=== PATIENT | male | born 1955 | race Caucasian/White ===

== ENCOUNTER 2017-04-18 08:36 | Observation (INO) | payer BC ==
[~2017-04-18] VITALS: Ht 182.9 cm; Wt 97.7 kg
--- NOTE | ~2017-04-18 | CATH ---
Cardiac Diagnostic + PCI Report Demographics Patient Name THERESA Rojas Gender Male Date of 1955 Age 61 year(s) Patient Number [id number] Date of Study 04/18/2017 Visit Number [id number] Room Number 415 Corporate ID Ht 182.88 cm Wt 100.24 kg Accession Number [id number] BSA 2.22 m kg/m Referring Benjamin Alexis MD Primary Physician Physician Performing Bhavya LIRIANO Secondary Physician Physician Samir Alexis MD Diagnostic Benjamin Alexis MD Assisting Physician Physician Interventional Bhavya LIRIANO Physician Reproductive Healthcare Assistant Physician Samir Findings and Conclusions Diagnostic Findings and Conclusion Single vessel coronary artery disease. Normal LVEDP. Diagnostic Recommendations PCI of the proximal LAD. Interventional Findings and Conclusion Successful PCI of the proximal LAD with a 3.5 x 16 Synergy stent, post-dilated to 3.75. Interventional Recommendations Risk factor modification and dual antiplatelet therapy. Procedure Description The patient was brought to the diagnostic cardiac catheterization laboratory in the fasting, non-sedated state. Informed consent was obtained in the written and verbal form after the risks and benefits were explained. The patient had no further questions and agreed to proceed. The planned puncture-incision site(s) were clipped and prepped with ChloraPrep and draped in the usual sterile manner. Conscious sedation, supplemental oxygen, and pain control medications were delivered by a registered nurse under physician guidance. Surface ECG rhythm, blood pressure measurement, and pulse oximetry were monitored throughout the procedure. Arterial access. The right radial access site was infiltrated with lidocaine. The vessel was entered with the Seldinger technique. A 6F radial sheath was advanced into the vessel and used for catheter placement. Selective left coronary angiography. A JL3.5 catheter was advanced into the left coronary vessel ostium under Fluoroscopic guidance. Contrast was injected by hand. Images were obtained in multiple projections. Left heart catheterization. A FR4 catheter was advanced across the aortic valve to the left ventricle under fluoroscopic guidance. Resting hemodynamics were obtained. Selective right coronary angiography. An FR4 catheter was advanced into the right coronary vessel ostium under fluoroscopic guidance. Contrast was injected by hand. Images were obtained in multiple projections. Angioplasty and Stent Placement: An XB3.5 guiding catheter was used to intubate the vessel. A 0.14 BMW wire was then used to cross the lesion. A 3.0 x 12 Emerge balloon catheter was placed across the lesion and inflated. The balloon catheter was then removed. A 3.5 x 16 Synergy Drug Eluting Stent was placed and inflated. The stent balloon catheter was then removed. A 3.75 x 12 NC Emerge balloon catheter was placed across the lesion and inflated. The balloon catheter was then removed. Post placement angiograms were performed. Hemostasis: The sheath was removed and a TR Band was placed. Hemostasis was achieved. The patient was transferred to the PCU nursing floor via cart accompanied by a nurse. The patient left the laboratory in stable condition. Diagnostic Cath Status: Elective Procedure Procedure Type Diagnostic procedure:Angiography:, Coronary Angios w/[facility] PCI procedure:Drug Eluting Coronary Stent:, LAD Indications: Unstable angina, Abnormal nuclear perfusion test and Hypertension. The procedure was explained in detail to the patient. Risks, complications and alternative treatments were reviewed. Written consent was obtained. Medications Reviewed with Patient prior to Procedure. Complications: No Complication. Angiographic Findings Dominance: Right Cardiac Arteries and Lesion Findings LMCA: Abnormal. Lesion on LMCA: The lesion was heavily calcified. LAD: Abnormal. Lesion on Prox LAD: Proximal subsection.90% stenosis 16 mm length reduced to 0%. Pre procedure BELKIS III flow was noted. Post Procedure BELKIS III flow was present. The guidewire cross was successful.The lesion was diagnosed as a moderate risk lesion.Culprit lesion. Devices used - BMW GUIDEWIRE 180CM. Number of passes: 1. - CATH BAL RX EMERGE 3.0X12. 1 inflation(s) to a max pressure of: 12 heide. - CATH STENT SYNERGY 3.5 X 16. 1 inflation(s) to a max pressure of: 16 heide. - CATH BAL RX NC EMERGE 3.75X12. 1 inflation(s) to a max pressure of: 16 heide. Lesion on 1st Diag: Ostial.70% stenosis . Pre procedure BELKIS III flow was noted. LCx: Normal (0% Stenosis). RCA: Normal (0% Stenosis). Coronary Tree Procedure Data Procedure Date Date: 04/18/2017Start: 10:32 AMEnd: 12:18 PM Entry Locations - Retrograde Percutaneous access was performed through the Right Radial artery (Primary location). A 6 Fr sheath was inserted. Hemostasis was successfully obtained using a TR band. Procedure Medications Order and Administration + + +---------+-------+ !Time !Medication !Dosage !Route ! + + +---------+-------+ !04/18/2017 !Versed !2 mg !I.V. ! !10:29 AM ! ! ! ! + + +---------+-------+ !04/18/2017 !Fentanyl !50 mcg !I.V. ! !10:29 AM ! ! ! ! + + +---------+-------+ !04/18/2017 !SF Radial Cocktail: 200mcg Nitro, 2.5 mg! !I.A. ! !10:35 AM !Verapamil, 5000u Heparin ! ! ! + + +---------+-------+ !04/18/2017 !Versed !2 mg !I.V. ! !10:37 AM ! ! ! ! + + +---------+-------+ !04/18/2017 !Fentanyl !25 mcg !I.V. ! !10:38 AM ! ! ! ! + + +---------+-------+ !04/18/2017 !Heparin (ACC_3) !8000 !I.V. ! !11:49 AM ! !units ! ! + + +---------+-------+ !04/18/2017 !Sodium Chloride !10 ml !I.V. ! !11:49 AM ! ! ! ! + + +---------+-------+ !04/18/2017 !Brilinta (Ticagrelor) (ACC_20) !180 mg !P.O. ! !11:49 AM ! ! ! ! + + +---------+-------+ !04/18/2017 !Versed !1 mg !I.V. ! !11:50 AM ! ! ! ! + + +---------+-------+ !04/18/2017 !Fentanyl !25 mcg !I.V. ! !11:50 AM ! ! ! ! + + +---------+-------+ !04/18/2017 !Nitroglycerin !200 mcg !I.C. ! !12:04 PM ! ! ! ! + + +---------+-------+ !04/18/2017 !Sodium Chloride !10 ml !I.V. ! !11:50 AM ! ! ! ! + + +---------+-------+ 04/18/2017 !Sodium Chloride !10 ml !I.V. ! !10:29 AM ! ! ! ! + + +---------+-------+ Devices Used - ACATH 6FR FL3.5 CATHETER 100CMwas used for:Left coronary angiography. - ACATH 6F FR4 CATHETER 100CMwas used for:Right coronary angiography. - A6 FrGUIDE CATHETER 6FR XB 3.5 100CMwas used for:LeftsideLAD Intervention. Contrast Material - Isovue 322427 ml - Isovue 41290 ml Fluoroscopy Time: Diagnostic: 6:18 minutes. Total: 6:18 minutes. Fluoroscopy Dose: Diagnostic: 627 mGy. Total: 627 mGy. Estimated Blood Loss: 15 ml. Medical History Performed Procedures and Imaging Results - Stress testing with SPECT MPIwas performed on 04/08/2017. Results were: Positive. Risk/Extent of ischemia was: Low risk. Allergies - Other:(Ampicillin). Risk Factors The patient risk factors include:hypertension, last creatinine: 0.8 mg/dl and creatinine clearance: 134.01 ml/min. Admission Data Admission Date: 04/18/2017 Admission Time: 11:42 AM Arrival Date: 04/18/2017 Arrival Time: 10:24 AM Admit Source: Other Insurance Payors: Private health insurance. Clinical Evaluation Leading to Procedure Diagnosed on 04/09/2017 10:00 AM. - The patient's CAD presentation was assessed as: Unstable angina. - The patient's anginal syndrome during the past two weeks was assessed as: Class III according to the [place] [employer] Classification System (CCS). Anti-anginal medications were prescribed during the past two weeks. The medication is: Beta Blockers. Hemodynamics Condition: Rest O2 Consumption: Estimated: 254.03Heart Rate: 63 bpm Pressures (mmHg) +-----+ + !Site !Pressure ! +-----+ + !AO !122/74 (96) ! +-----+ + !LV !107/2 ,11 ! +-----+ + !AO !109/64 (86) ! +-----+ + !LV !117/4 ,12 ! +-----+ + Valve Gradients and Areas + +---------+---------+---------+ +---------+ + !Valve !Peak !Mean !Area !Index !Flow !Source ! + +---------+---------+---------+ +---------+ + !Aortic !6 !7 ! ! ! ! ! + +---------+---------+---------+ +---------+ + !Aortic !6 !7 ! ! ! ! ! + +---------+---------+---------+ +---------+ + Shunts Oxygen Values O2 Consumption 254.03 Discharge Data Discharge Date: 04/19/2017 Hospital Status: Inpatient Signatures
[2017-04-19] MEDS ORDERED: METOPROLOL TART25 MG PO (15:20)
[2017-04-19] MEDS ORDERED: ASA CHILDREN'S81 MG PO (15:20)
[2017-04-19] MEDS ORDERED: OMEGA-3 DPS1000 MG PO (15:21)
[2017-04-19] MEDS ORDERED: VITAMIN D-32000 UNI1 PO (15:21)
[2017-04-19] MEDS ORDERED: CALTRATE-600 W600 MG PO (15:21)
[2017-04-19] MEDS ORDERED: GLUCOSAMINE CH1 EAC6 PO (15:21)
[2017-04-19] MEDS ORDERED: THERA1 EACH PO (15:21)
[2017-04-19] MEDS ORDERED: LUTEIN 15 MG S1 EACH PO (15:22)
[2017-04-19] MEDS ORDERED: GINKGO BILOBA120 MG PO (15:22)
[2017-04-19] MEDS ORDERED: TURMERIC500 MG PO (15:22)
[2017-04-19] MEDS ORDERED: ESTER-C 500 MG1 EACH PO (15:23)
[2017-04-19] MEDS ORDERED: LIPITOR DPS10 MG PO (15:23)
[2017-04-19] MEDS ORDERED: VITAMIN E100 UNIT PO (15:23)
[2017-04-19] MEDS ORDERED: NITROSTAT0.4 MG SL (15:23)
[2017-04-19] MEDS ORDERED: BRILINTA90 MG PO (15:23)
== END 2017-04-19 10:57 | disposition home or self-care (01) ==
LOC: SSS 08:36 → 4PCU 11:42 → SSS 14:23 → 4PCU 04-19 10:57
PROVIDERS: ADMIT Internal Medicine
DX: I25.110 Atherosclerotic heart disease of native coronary artery with unstable angina pectoris (principal); I10 Essential (primary) hypertension; J45.909 Unspecified asthma, uncomplicated; Z79.82 Long term (current) use of aspirin; Z88.1 Allergy status to other antibiotic agents; Z87.891 Personal history of nicotine dependence; Z79.899 Other long term (current) drug therapy